=== PATIENT | male | born 1980 | race African-American/Black ===

== ENCOUNTER 2017-11-17 00:59 | Observation (INO) | payer OTHER ==
[~2017-11-17] VITALS: Ht 172.7 cm; Wt 109.2 kg
[2017-11-17 01:39] LABS: HEMATOCRIT 40.2 % (38.0-50.0); MCH 30.3 PG (29.0-34.0); MCHC 34.8 G/DL (30.0-36.0); RBC DIS.WIDTH-CV 12.2 % (11.8-14.6); RBC DIS.WIDTH-SD 38.9 % (39-53); RED BLOOD COUNT 4.62 M/uL (4.00-5.50); WHITE BLOOD COUNT 6.6 K/uL (4.1-10.2)
[2017-11-17 01:53] LABS: ALBUMIN 3.9 g/dL (3.2-4.8); CHLORIDE 107 mEq/L (99-109); POTASSIUM 4.2 mEq/L (3.7-5.4); SODIUM 139 mEq/L (136-147)
[2017-11-17 01:56] LABS: GLUCOSE 119 mg/dL (70-99); TOTAL PROTEIN 7.2 g/dL (6.4-8.3)
[2017-11-17 01:57] LABS: TOTAL BILIRUBIN 0.9 mg/dL (0.0-1.0)
[2017-11-17 01:59] LABS: ALKALINE PHOSPHATASE 94 IU/L (3-129); CREATININE 0.9 mg/dL (0.6-1.3)
[2017-11-17 02:00] LABS: UREA NITROGEN (BUN) 13 mg/dL (9-23)
[2017-11-17 02:01] LABS: AST (GOT) 32 IU/L (2-34)
[2017-11-17 02:02] LABS: ALT (GPT) 64 IU/L (3-49); TROP-I INTERPRETATION NEGATIVE; TROPONIN-I < 0.01 ng/mL (0.0-0.30)
[2017-11-17 02:03] LABS: LIPASE 40 U/L (1.0-51.0)
[2017-11-17 02:21] LABS: GFR ESTIMATE (CALCULATED) > 59 mL/min/ (58.99-99999)
[2017-11-17 03:04] LABS: PLAT.SUFFICIENCY ADEQUATE; PLATELET COUNT 209 K/uL (156-360)
[2017-11-17 04:47] LABS: D-DIMER ELISA < 150.00 ng/mLDDU (<230)
[2017-11-17 08:15] VITALS: BP 112/58
[2017-11-17 08:31] LABS: TROP-I INTERPRETATION NEGATIVE; TROPONIN-I < 0.01 ng/mL (0.0-0.30)
[2017-11-17] MEDS ORDERED: ASPIR-LOW81 MG PO (14:56)
[2017-11-17 15:09] LABS: TROP-I INTERPRETATION NEGATIVE; TROPONIN-I < 0.01 ng/mL (0.0-0.30)
== END 2017-11-17 16:37 | disposition home or self-care (01) ==
LOC: EDBD 00:59 → EME 00:59 → EDOF 06:59 → EDLOC 06:59 → EDOF 06:59 → ENRESERV 07:03 → CANRESERV 07:03 → ENRESERV 07:37 → 4SOUTH 12:37
PROVIDERS: Emergency Medicine; Nurse Practitioner Adult Health
DX: R07.89 Other chest pain (principal); I10 Essential (primary) hypertension; F41.9 Anxiety disorder, unspecified; F17.210 Nicotine dependence, cigarettes, uncomplicated; R06.02 Shortness of breath; Z79.82 Long term (current) use of aspirin; E66.9 Obesity, unspecified; Z68.36 Body mass index [BMI] 36.0-36.9, adult; Z82.49 Family history of ischemic heart disease and other diseases of the circulatory system
CPT/HCPCS: 71046; 80053; 83690; 84484; 85027; 85379; 93005; 99281; 99285; G0378; J1885; J7030; S0028

== ENCOUNTER 2017-11-19 22:10 | Emergency (ER) | payer OTHER ==
[~2017-11-19] VITALS: Ht 172.7 cm; Wt 108.0 kg
[~2017-11-19 22:10] MED LIST: ASPIR-LOW81 MG PO
[2017-11-19 22:53] LABS: BASOPHIL (%) 0.4 % (0-1); BASOPHIL COUNT 0.1 K/uL (0-0.1); EOSINOPHIL (%) 0.3 % (0-5); HEMATOCRIT 43.2 % (38.0-50.0); HEMOGLOBIN 14.8 G/DL (12.5-16.6); IMMATURE GRANULOCYTE (%) 0.7 % (0.0-0.7); LYMPHOCYTE (%) 12.6 % (15-42); LYMPHOCYTE COUNT 1.7 K/uL (1.0-2.8); MCH 30.1 PG (29.0-34.0); MCHC 34.3 G/DL (30.0-36.0); MONOCYTE (%) 9.9 % (3-12); MONOCYTE COUNT 1.3 K/uL (0-0.8); NEUTROPHIL (%) 76.1 % (45-76); PLATELET COUNT 214 K/uL (156-360); RBC DIS.WIDTH-CV 12.6 % (11.8-14.6); RBC DIS.WIDTH-SD 40.2 % (39-53); RED BLOOD COUNT 4.91 M/uL (4.00-5.50); WHITE BLOOD COUNT 13.1 K/uL (4.1-10.2)
[2017-11-19 23:03] LABS: ALBUMIN 4.3 g/dL (3.2-4.8)
[2017-11-19 23:04] LABS: CHLORIDE 111 mEq/L (99-109); POTASSIUM 4.3 mEq/L (3.7-5.4); SODIUM 142 mEq/L (136-147)
[2017-11-19 23:06] LABS: GLUCOSE 110 mg/dL (70-99); TOTAL PROTEIN 7.8 g/dL (6.4-8.3)
[2017-11-19 23:09] LABS: ALKALINE PHOSPHATASE 112 IU/L (3-129); SERUM ETHYL ALCOHOL < 10 mg/dL
[2017-11-19 23:10] LABS: CREATININE 1.1 mg/dL (0.6-1.3); GFR ESTIMATE (CALCULATED) > 59 mL/min/ (58.99-99999); TOTAL BILIRUBIN 1.1 mg/dL (0.0-1.0)
[2017-11-19 23:11] LABS: AST (GOT) 40 IU/L (2-34); UREA NITROGEN (BUN) 17 mg/dL (9-23)
[2017-11-19 23:13] LABS: ALT (GPT) 75 IU/L (3-49); CREATINE KINASE 183 IU/L (1-294); LIPASE 59 U/L (1.0-51.0)
[2017-11-19 23:16] LABS: TROP-I INTERPRETATION NEGATIVE; TROPONIN-I 0.02 ng/mL (0.0-0.30)
[2017-11-20 00:10] LABS: AMPHETAMINE NEGATIVE (500 ng/mL); BARBITURATES NEGATIVE (200 ng/mL); BENZODIAZEPINES NEGATIVE (150 ng/mL); BUPRENORPHINE NEGATIVE (10 ng/mL); COCAINE PRESUMPTIVE POSITIVE (150 ng/mL); METHADONE NEGATIVE (200 ng/mL); METHAMPHETAMINE NEGATIVE (500 ng/mL); OPIATES (MORPHINE) NEGATIVE (100 ng/mL); OXYCODONE NEGATIVE (100 ng/mL); PHENCYCLIDINE NEGATIVE (25 ng/mL); PROPOXYPHENE NEGATIVE (300 ng/mL); THC CANNABINOIDS NEGATIVE (50 ng/mL); TRICYCLIC ANTIDEPRESSANTS NEGATIVE (300 ng/mL)
[2017-11-20 02:12] LABS: TROP-I INTERPRETATION NEGATIVE; TROPONIN-I 0.02 ng/mL (0.0-0.30)
[2017-11-20] MEDS ORDERED: ZESTRIL10 MG PO (02:20)
[2017-11-20 03:02] VITALS: BP 157/88
== END 2017-11-20 02:50 | disposition home or self-care (01) ==
LOC: EME → EDBD 22:10 → EME 11-20 02:50
PROVIDERS: Emergency Medicine
DX: R07.89 Other chest pain (principal); F14.10 Cocaine abuse, uncomplicated; F41.9 Anxiety disorder, unspecified; I10 Essential (primary) hypertension; F17.200 Nicotine dependence, unspecified, uncomplicated
CPT/HCPCS: 80053; 82550; 83690; 84484; 84999; 85025; 93005; 99281; 99285; G0480; J7030